=== PATIENT | female | born 1940 | race Two or more races ===

== ENCOUNTER → 2016-11-02 | Outpatient (CLI) | payer OTHER, MEDICARE ==
[~2016-11-02] VITALS: Ht 160 cm; Wt 73.0 kg
[~2016-11-02] MED LIST: AMLODIPINE BES2.5 MG PO; AVAPRO150 MG PO; AVAPRO300 MG PO; BETOPTIC BOTH EYES; BIOTIN1000 MICRO PO; COUMADIN7.5 MG PO; DAILY VALUE1 EACH PO; DECADRON1 MG PO; FISH OIL 1,0001 EAC7 PO; FISH OIL 1,0001 EAC8 PO; FLOVENT 22120 INHALA IH; IRON325 M1 PO; KEFLEX500 MG PO; LIPITOR10 MG PO; LIPITOR20 MG PO; METOPROLOL SUC100 MG PO; MONTELUKAST SOD10 MG PO; PROTONIX40 MG PO; SOTALOL AF80 MG PO; TOPROL XL100 MG PO; TRAVATAN Z5 ML RIGHT EYE; TYLENOL EXTRA500 MG PO; VITAMIN D1000 INTUN PO; VITAMIN D31000 UNIT PO; WARFARIN SODIU7.5 MG PO
== END | disposition home or self-care (01) ==
LOC: AMB 10:32
PROC: 0DJ08ZZ Inspection of Upper Intestinal Tract, Via Natural or Artificial Opening Endoscopic (ICD-10-PCS; principal; 2016-11-02)
DX: K30 Functional dyspepsia (principal); K21.9 Gastro-esophageal reflux disease without esophagitis; D50.9 Iron deficiency anemia, unspecified; I48.91 Unspecified atrial fibrillation; I10 Essential (primary) hypertension; E78.00 Pure hypercholesterolemia, unspecified; R73.09 Other abnormal glucose; E53.8 Deficiency of other specified B group vitamins; Z82.61 Family history of arthritis; Z80.3 Family history of malignant neoplasm of breast; Z82.49 Family history of ischemic heart disease and other diseases of the circulatory system; Z80.42 Family history of malignant neoplasm of prostate; Z79.01 Long term (current) use of anticoagulants; Z79.899 Other long term (current) drug therapy

== ENCOUNTER → 2017-03-22 | Outpatient (CLI) | payer OTHER, MEDICARE | END | disposition home or self-care (01) | LOC: RES 09:15 | DX: J98.4 Other disorders of lung (principal) | CPT/HCPCS: 94060; 94726; 94729 ==

== ENCOUNTER 2017-08-05 22:08 | Inpatient (IN) | payer OTHER, MEDICARE ==
[~2017-08-05] VITALS: Ht 160 cm; Wt 82.0 kg
[~2017-08-05 22:08] MED LIST changes: +XALATAN2.5 ML RIGHT EYE
[2017-08-06 12:33] VITALS: BP 156/87
[2017-08-06 13:02] LABS: PTT 28.2 SEC (25-37)
[2017-08-06 13:06] LABS: INTER. NORMALIZED RATIO 1.1
[2017-08-06 20:11] VITALS: BP 148/81
[2017-08-06 21:00] VITALS: BP 148/81
[2017-08-06 23:17] VITALS: BP 120/57
[2017-08-07 03:41] VITALS: BP 110/53
[2017-08-07 07:18] LABS: HEMATOCRIT 31.9 % (36.0-46.0); HEMOGLOBIN 10.8 G/DL (11.9-15.5); MCV 90.6 FL (83-99)
[2017-08-07 07:24] LABS: INTER. NORMALIZED RATIO 1.2
[2017-08-07] MEDS ORDERED: HYDROCODON-ACE1 EAC7 PO (08:11)
[2017-08-07 08:32] VITALS: BP 108/59
== END 2017-08-07 11:00 | disposition home or self-care (01) | DRG 483 ==
LOC: ENRESERV 22:08 → 2SOUTH 08-06 12:09 → 3EAST 08-06 12:09 → 2SOUTH 08-06 15:46 → ENRESERV 08-06 19:27 → 3EAST 08-06 20:02
PROVIDERS: Orthopaedic Surgery
PROC: 0RRK00Z Replacement of Left Shoulder Joint with Reverse Ball and Socket Synthetic Substitute, Open Approach (ICD-10-PCS; principal; 2017-08-07)
DX: M19.012 Primary osteoarthritis, left shoulder (principal); I11.0 Hypertensive heart disease with heart failure; K21.9 Gastro-esophageal reflux disease without esophagitis; I50.9 Heart failure, unspecified; I48.0 Paroxysmal atrial fibrillation; I34.1 Nonrheumatic mitral (valve) prolapse; E78.5 Hyperlipidemia, unspecified; H40.9 Unspecified glaucoma; J45.909 Unspecified asthma, uncomplicated; G62.9 Polyneuropathy, unspecified; D50.9 Iron deficiency anemia, unspecified; E53.8 Deficiency of other specified B group vitamins; E78.00 Pure hypercholesterolemia, unspecified; E04.2 Nontoxic multinodular goiter; R73.03 Prediabetes
CPT/HCPCS: 85014; 85018; 85610; 85730; C1713; G0378; J0330; J0690; J1100; J2250; J2405; J2795; J7030; J7050; J7120; Q0175

== ENCOUNTER → 2018-01-29 | Outpatient (CLI) | payer OTHER, MEDICARE ==
[~2018-01-29] MED LIST changes: +HYDROCODON-ACE1 EAC7 PO
== END | disposition home or self-care (01) ==
LOC: RES 12:57
DX: R06.02 Shortness of breath (principal)
CPT/HCPCS: 94060; 94726; 94729